=== PATIENT | female | born 1955 | race Caucasian/White ===

== ENCOUNTER → 2017-10-16 | Outpatient (CLI) | payer OTHER ==
[~2017-10-16] MED LIST: ASPIR 8181 MG PO; CENTRUM SILVER1 EAC4 PO; FISH OIL + D31 EACH PO; FISH OIL 1,001000 M2 PO; GLUCOSAMINE &1 EAC1 PO; HYDROCODONE-AP1 EAC6 PO; IBUPROFEN 600600 M1 PO; SIMETHICON CHEW80 M1 PO
== END ==
LOC: RAD 11:19
DX: Z12.31 Encounter for screening mammogram for malignant neoplasm of breast (principal)